=== PATIENT | male | born 1990 | race Caucasian/White ===

== ENCOUNTER 2021-10-05 07:09 | Emergency (ER) | payer BC ==
[~2021-10-05] VITALS: Ht 170.2 cm; Wt 163.3 kg
[2021-10-05] MEDS ORDERED: CRUTCHES XX (07:45)
== END 2021-10-05 08:09 | disposition home or self-care (01) ==
LOC: ED 07:09
DX: M25.562 Pain in left knee (principal); R03.0 Elevated blood-pressure reading, without diagnosis of hypertension
CPT/HCPCS: 73560; 99283-25